=== PATIENT | male | born 1985 | race Caucasian/White ===

== ENCOUNTER 2017-08-18 20:05 | Emergency (ER) | payer OTHER ==
[~2017-08-18] VITALS: Ht 170.2 cm; Wt 93.0 kg
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
--- NOTE | 2017-08-18 20:25 | NUR ---
ERMD at bedside for MSE.
--- NOTE | 2017-08-18 21:40 | NUR ---
Patient to Radiology for CT/XRAY via gurney.
[2017-08-18] MEDS ORDERED: KETOROLAC TROMETHAMINE 60 MG INJ IM ONE ×2 (22:28→22:30)
--- NOTE | 2017-08-18 23:05 | NUR ---
Patient discharged to home in stable conditon. Written and verbal after care instructions given. Patient verbalizes understanding of instructions.
== END 2017-08-18 23:09 | disposition home or self-care (01) ==
LOC: ER 20:09
DX: M54.9 Dorsalgia, unspecified (principal); V43.52XA Car driver injured in collision with other type car in traffic accident, initial encounter; Y93.89 Activity, other specified; Y99.8 Other external cause status; Y92.410 Unspecified street and highway as the place of occurrence of the external cause
CPT/HCPCS: 70450; 71045; 72125; 72131; A4663; J1885